=== PATIENT | male | born 1990 | race Caucasian/White ===

== ENCOUNTER 2017-03-16 18:49 | Emergency (ER) | payer SELFPAY ==
[~2017-03-16] VITALS: Ht 167.6 cm; Wt 55.2 kg
[2017-03-16 20:04] LABS: URINE BILIRUBIN - DIPSTICK NEGATIVE (NEGATIVE); URINE BLOOD DIPSTICK NEGATIVE (NEGATIVE); URINE CLARITY CLEAR; URINE COLOR YELLOW; URINE GLUCOSE - DIPSTICK NEGATIVE (NEGATIVE); URINE KETONE NEGATIVE (NEGATIVE); URINE LEUK ESTERASE NEGATIVE (NEGATIVE); URINE NITRITE - DIPSTICK NEGATIVE (Negative); URINE PH 5.5 (4.5-8.0); URINE PROTEIN - DIPSTICK NEGATIVE (NEG-TRACE); URINE UROBILINOGEN - DIPSTICK 0.2 E.U./dL (0.2)
[2017-03-16 20:06] LABS: BARBITURATES NEGATIVE (NEGATIVE); COCAINE NEGATIVE (NEGATIVE); METHADONE NEGATIVE (NEGATIVE); OXCYCODONE NEGATIVE (NEGATIVE); TETRAHYDROCANNABIONOL NEGATIVE (NEGATIVE); TRICYLIC ANTIDEPRESSANTS NEGATIVE (NEGATIVE)
[2017-03-16 20:27] LABS: ALBUMIN 4.2 g/dL (3.2-5.0); ALKALINE PHOSPHATASE 50 u/l (38-126); ANION GAP 12 (6-22 (CALC)); BILIRUBIN, TOTAL 0.6 mg/dL (0.0-1.4); BUN 15 mg/dL (9-20); BUN/CREATININE RATIO 18 (12-20 (CALC)); CALCIUM 9.4 mg/dL (8.4-10.2); CARBON DIOXIDE 30 mmol/l (22-30); CHLORIDE 101 mmol/l (95-108); CREATININE 0.8 mg/dL (0.7-1.3); GFR > 60 ML/MIN (>=60 (CALC)); GFR FOR AFR.AMER. > 60 ML/MIN (>=60 (CALC)); GLUCOSE 80 mg/dL (75-110); POTASSIUM 4.3 mmol/l (3.5-5.1); SGOT/AST 20 u/l (17-59); SGPT/ALT 34 u/l (21-72); SODIUM 139 mmol/l (137-146); TOTAL PROTEIN 6.2 g/dL (6.3-8.2)
[2017-03-16 21:31] LABS: HEMATOCRIT 42.3 % (39.0-50.0); HEMOGLOBIN 14.2 g/dl (14.0-18.0); IMMATURE GRANULOCYTES 0.2 % (0.0-1.0); MEAN CELL VOLUME 82.3 fL CALC (80.0-100.0); MEAN CORPUSCULAR HGB 27.6 pG CALC (26.0-32.0); MEAN CORPUSCULAR HGB CONC 33.6 g/L CALC (32.0-36.0); RED BLOOD COUNT 5.14 mill/uL (4.70-6.10); RED CELL DISTRI WIDTH 13.2 % (11.5-15.5)
[2017-03-16 21:58] VITALS: BP 148/77
== END 2017-03-16 21:51 | disposition home or self-care (01) | DRG 948 ==
LOC: ED 18:49
PROVIDERS: Emergency Medicine
DX: R53.1 Weakness (principal); F31.9 Bipolar disorder, unspecified; Z91.14 Patient's other noncompliance with medication regimen

== ENCOUNTER 2017-03-24 11:08 | Emergency (ER) | payer SELFPAY ==
[~2017-03-24] VITALS: Ht 167.6 cm; Wt 68.2 kg
[2017-03-24 11:26] LABS: HEMATOCRIT 41.1 % (39.0-50.0); HEMOGLOBIN 13.6 g/dl (14.0-18.0); IMMATURE GRANULOCYTES 0.2 % (0.0-1.0); MEAN CELL VOLUME 85.6 fL CALC (80.0-100.0); MEAN CORPUSCULAR HGB 28.3 pG CALC (26.0-32.0); MEAN CORPUSCULAR HGB CONC 33.1 g/L CALC (32.0-36.0); NEUT# 2.05 thou/uL (1.82-7.42); RED BLOOD COUNT 4.8 mill/uL (4.70-6.10); RED CELL DISTRI WIDTH 14.3 % (11.5-15.5)
[2017-03-24 11:43] LABS: ALBUMIN 4.4 g/dL (3.2-5.0); ALKALINE PHOSPHATASE 42 u/l (38-126); ANION GAP 12 (6-22 (CALC)); BILIRUBIN, TOTAL 0.5 mg/dL (0.0-1.4); BUN 16 mg/dL (9-20); BUN/CREATININE RATIO 25 (12-20 (CALC)); CALCIUM 9.7 mg/dL (8.4-10.2); CARBON DIOXIDE 31 mmol/l (22-30); CHLORIDE 103 mmol/l (95-108); CREATININE 0.7 mg/dL (0.7-1.3); GFR > 60 ML/MIN (>=60 (CALC)); GFR FOR AFR.AMER. > 60 ML/MIN (>=60 (CALC)); GLUCOSE 87 mg/dL (75-110); POTASSIUM 4.1 mmol/l (3.5-5.1); SGOT/AST 16 u/l (17-59); SGPT/ALT 36 u/l (21-72); SODIUM 141 mmol/l (137-146); TOTAL PROTEIN 6.6 g/dL (6.3-8.2)
[2017-03-24 11:46] LABS: ETHYL ALCOHOL 0 mg/dl (0-30)
[2017-03-24 11:50] LABS: URINE BILIRUBIN - DIPSTICK NEGATIVE (NEGATIVE); URINE BLOOD DIPSTICK NEGATIVE (NEGATIVE); URINE CLARITY CLEAR; URINE COLOR YELLOW; URINE GLUCOSE - DIPSTICK NEGATIVE (NEGATIVE); URINE KETONE NEGATIVE (NEGATIVE); URINE LEUK ESTERASE NEGATIVE (NEGATIVE); URINE NITRITE - DIPSTICK NEGATIVE (Negative); URINE PH 7.5 (4.5-8.0); URINE PROTEIN - DIPSTICK NEGATIVE (NEG-TRACE); URINE UROBILINOGEN - DIPSTICK 0.2 E.U./dL (0.2)
[2017-03-24 11:52] LABS: BARBITURATES NEGATIVE (NEGATIVE); COCAINE NEGATIVE (NEGATIVE); METHADONE NEGATIVE (NEGATIVE); OXCYCODONE NEGATIVE (NEGATIVE); TETRAHYDROCANNABIONOL NEGATIVE (NEGATIVE); TRICYLIC ANTIDEPRESSANTS NEGATIVE (NEGATIVE)
[2017-03-24 11:54] LABS: MYOGLOBIN 14 ng/mL (0 - 121)
[2017-03-24 15:44] VITALS: BP 126/68
== END 2017-03-24 15:44 | disposition short-term general hospital (02) | DRG 885 ==
LOC: ED 11:08
PROVIDERS: Emergency Medicine
PROC: 0T9B70Z Drainage of Bladder with Drainage Device, Via Natural or Artificial Opening (ICD-10-PCS; principal; 2017-03-24)
DX: F23 Brief psychotic disorder (principal); R00.1 Bradycardia, unspecified

== ENCOUNTER 2019-04-11 16:05 | Emergency (ER) | payer OTHER ==
[~2019-04-11] VITALS: Ht 167.6 cm; Wt 64.0 kg
[2019-04-11 16:40] LABS: IMMATURE GRANULOCYTES 0.3 % (0.0-5.0); MEAN CELL VOLUME 81.5 fL CALC (80.0-100.0); MEAN CORPUSCULAR HGB 27.7 pG CALC (26.0-32.0); NEUT# 7.21 thou/uL (1.82-7.42); RED BLOOD COUNT 5.95 mill/uL (4.70-6.10); RED CELL DISTRI WIDTH 12.8 % (11.5-15.5)
[2019-04-11 16:42] LABS: URINE BLOOD DIPSTICK TRACE-INTACT (NEGATIVE); URINE COLOR YELLOW; URINE GLUCOSE - DIPSTICK NEGATIVE (NEGATIVE); URINE KETONE >=80 mg/dL (NEGATIVE); URINE LEUK ESTERASE NEGATIVE (NEGATIVE); URINE NITRITE - DIPSTICK NEGATIVE (Negative); URINE PH 5.5 (4.5-8.0); URINE PROTEIN - DIPSTICK 100 mg/dL (NEG-TRACE); URINE SPECIFIC GRAVITY >=1.030; URINE UROBILINOGEN - DIPSTICK 0.2 E.U./dL (0.2)
[2019-04-11 16:42] LABS: HEMATOCRIT 48.5 % (39.0-50.0); HEMOGLOBIN 16.5 g/dl (14.0-18.0)
[2019-04-11 16:43] LABS: URINE BILIRUBIN - DIPSTICK NEGATIVE (NEGATIVE)
[2019-04-11 16:44] LABS: BARBITURATES NEGATIVE (NEGATIVE); COCAINE NEGATIVE (NEGATIVE); METHADONE NEGATIVE (NEGATIVE); OXCYCODONE NEGATIVE (NEGATIVE); TETRAHYDROCANNABIONOL NEGATIVE (NEGATIVE); TRICYLIC ANTIDEPRESSANTS NEGATIVE (NEGATIVE); URINE RBC 0-2 RBC/hpf (0-5); URINE WBC 0-2 WBC/hpf (0-5)
[2019-04-11 17:03] LABS: BUN 12 mg/dL (9-20); BUN/CREATININE RATIO 14 (12-20 (CALC)); CHLORIDE 104 mmol/l (95-108); CREATININE 0.8 mg/dL (0.7-1.3); GFR > 60 ML/MIN (>=60 (CALC)); GFR FOR AFR.AMER. > 60 ML/MIN (>=60 (CALC)); LIPASE 117 u/l (23-300); POTASSIUM 4.3 mmol/l (3.5-5.1); SGOT/AST 28 u/l (17-59); SODIUM 141 mmol/l (137-146)
[2019-04-11 17:08] LABS: ALBUMIN 5.7 g/dL (3.2-5.0); ALKALINE PHOSPHATASE 80 u/l (38-126); ANION GAP 27 (6-22 (CALC)); BILIRUBIN, TOTAL 1.4 mg/dL (0.0-1.4); CARBON DIOXIDE 14 mmol/l (22-30); ETHYL ALCOHOL 0 mg/dl (0-30); TOTAL PROTEIN 8.3 g/dL (6.3-8.2)
[2019-04-11 17:33] LABS: TSH, 3RD GENERATION 0.49 uIU/mL (0.47 - 4.68)
[2019-04-11 17:55] VITALS: BP 109/59
== END 2019-04-11 17:55 | disposition designated cancer center or children's hospital (05) | DRG 880 ==
LOC: ED 16:05
PROVIDERS: Family Medicine
DX: R45.851 Suicidal ideations (principal)

== ENCOUNTER 2021-11-13 14:28 | Emergency (ER) | payer SELFPAY ==
[~2021-11-13] VITALS: Ht 167.6 cm; Wt 86.0 kg
[2021-11-13] MEDS ORDERED: CLEOCIN300 MG PO (16:27)
[2021-11-13] MEDS ORDERED: HYDROCO/APAP1 TA9 PO (16:27)
[2021-11-13 16:59] VITALS: BP 136/78
== END 2021-11-13 16:59 | disposition home or self-care (01) | DRG 159 ==
LOC: ED 14:28
DX: K04.7 Periapical abscess without sinus (principal); K02.9 Dental caries, unspecified

== ENCOUNTER 2022-03-03 21:07 | Emergency (ER) | payer SELFPAY ==
[~2022-03-03] VITALS: Ht 167.6 cm; Wt 109.0 kg
[~2022-03-03 21:07] MED LIST: CLEOCIN300 MG PO; HYDROCO/APAP1 TA9 PO
[2022-03-03] MEDS ORDERED: PAXLOVID PO (22:17)
[2022-03-03 22:30] VITALS: BP 128/74
[2022-03-03 22:47] VITALS: BP 128/72
== END 2022-03-03 22:49 | disposition home or self-care (01) | DRG 179 ==
LOC: ED 21:07
DX: U07.1 COVID-19 (principal); R51.9 Headache, unspecified; R52 Pain, unspecified; F31.9 Bipolar disorder, unspecified; J45.909 Unspecified asthma, uncomplicated; F17.200 Nicotine dependence, unspecified, uncomplicated

== ENCOUNTER 2022-04-23 17:43 | Emergency (ER) | payer OTHER ==
[~2022-04-23] VITALS: Ht 167.6 cm; Wt 108.8 kg
[~2022-04-23 17:43] MED LIST changes: +PAXLOVID PO
[2022-04-23 17:53] VITALS: BP 141/84
[2022-04-23 18:00] VITALS: BP 148/87
[2022-04-23] MEDS ORDERED: ESCITALOPRAM OX10 MG PO (18:13)
[2022-04-23] MEDS ORDERED: SEROQUEL100 MG PO (18:13)
[2022-04-23] MEDS ORDERED: INVEGA SUS1 IM (18:14)
[2022-04-23 18:15] VITALS: BP 132/91
[2022-04-23] MEDS ORDERED: BACTRIM DS1 TAB PO (19:55)
[2022-04-23 19:57] VITALS: BP 132/91
== END 2022-04-23 20:10 | disposition home or self-care (01) | DRG 603 ==
LOC: ED 17:43
DX: L03.116 Cellulitis of left lower limb (principal); S81.832A Puncture wound without foreign body, left lower leg, initial encounter; F31.9 Bipolar disorder, unspecified; J45.909 Unspecified asthma, uncomplicated; W45.8XXA Other foreign body or object entering through skin, initial encounter; Y93.89 Activity, other specified; Y92.89 Other specified places as the place of occurrence of the external cause; Y99.0 Civilian activity done for income or pay

== ENCOUNTER 2022-10-05 19:53 | Emergency (ER) | payer SELFPAY ==
[~2022-10-05] VITALS: Ht 167.6 cm; Wt 99.8 kg
[~2022-10-05 19:53] MED LIST changes: +BACTRIM DS1 TAB PO; +ESCITALOPRAM OX10 MG PO; +INVEGA SUS1 IM; +SEROQUEL100 MG PO
[2022-10-05] MEDS ORDERED: LEXAPRO20 MG PO (22:55)
[2022-10-05 23:28] VITALS: BP 130/76
== END 2022-10-05 23:32 | disposition home or self-care (01) | DRG 885 ==
LOC: ED 19:53
DX: F31.9 Bipolar disorder, unspecified (principal); Z76.0 Encounter for issue of repeat prescription

== ENCOUNTER 2022-12-21 08:15 | Emergency (ER) | payer SELFPAY ==
[~2022-12-21] VITALS: Ht 167.6 cm; Wt 100.6 kg
[~2022-12-21 08:15] MED LIST changes: +LEXAPRO20 MG PO
[2022-12-21] MEDS ORDERED: TAM75CAP PO (10:24)
[2022-12-21 10:28] VITALS: BP 113/77
== END 2022-12-21 10:33 | disposition home or self-care (01) | DRG 195 ==
LOC: ED 08:15
DX: J10.1 Influenza due to other identified influenza virus with other respiratory manifestations (principal); F31.9 Bipolar disorder, unspecified; J45.909 Unspecified asthma, uncomplicated; F17.210 Nicotine dependence, cigarettes, uncomplicated